=== PATIENT | female | born 1960 ===

== ENCOUNTER 2022-12-29 10:35 | Outpatient (CLI) | payer OTHER ==
[2022-12-29 12:25] LABS: BASOPHILS % (AUTO) 0.6 %; EOSINOPHILS # (AUTO) 0.1 10^3/uL (0.0-0.7); EOSINOPHILS % (AUTO) 2.3 %; HCT - HEMATOCRIT 43.9 % (37.0-47.0); HGB - HEMOGLOBIN 14.3 g/dL (12.0-16.0); LYMPHOCYTES # (AUTO) 1.8 10^3/uL (1.5-3.5); LYMPHOCYTES % (AUTO) 33.3 %; MEAN CORPUSCULAR HEMOGLOBIN 31.3 pg (27.0-31.0); MEAN CORPUSCULAR HGB CONC 32.6 g/dL (32.0-36.0); MEAN CORPUSCULAR VOLUME 96.1 fL (81.0-99.0); MEAN PLATELET VOLUME 10.5 fL (7.9-10.8); MONOCYTES # (AUTO) 0.3 10^3/uL (0.0-1.0); MONOCYTES % (AUTO) 6.3 %; NEUTROPHILS % (AUTO) 57.1 %; PLT - PLATELET COUNT 284 10^3/uL (130-450); RED BLOOD COUNT 4.57 10^6/uL (4.20-5.40); RED CELL DISTRIBUTION WIDTH 12.4 % (12.0-15.0); WHITE BLOOD COUNT 5.3 x10^3/uL (4.8-10.8)
[2022-12-29 12:51] LABS: ALBUMIN 4.1 g/dL (3.2-5.5); ALBUMIN/GLOBULIN RATIO 1.1 (1.0-2.2); BILIRUBIN,TOTAL 0.5 mg/dL (0.2-1.0); CALCIUM 10.2 mg/dL (8.5-10.3); CREATININE 0.9 mg/dL (0.4-1.0); POTASSIUM 3.4 mmol/L (3.5-5.0); TOTAL PROTEIN 7.8 g/dL (6.7-8.2)
== END 2022-12-29 10:36 | disposition home or self-care (01) ==
LOC: LAB.N 10:35
PROVIDERS: ATTEND Nurse Practitioner
DX: I10 Essential (primary) hypertension (principal); E83.52 Hypercalcemia
CPT/HCPCS: 36415; 80053; 83970; 85025

== ENCOUNTER 2022-12-29 14:41 | Outpatient (CLI) | payer OTHER ==
--- NOTE | 2022-12-29 16:39 | Ultrasound Report ---
PROCEDURE: Head or Neck Soft Tissue INDICATIONS: HYPERCALCEMIA TECHNIQUE: Real-time scanning was performed of the thyroid gland, with image documentation. COMPARISON: None FINDINGS: Right: Thyroid lobe measures 4.4 x 1.4 x 1.5 cm, and is homogeneous in echotexture. Left: Thyroid lobe measures 4.2 x 1.2 x 1.3 cm, and is homogenous in echotexture. Isthmus: 2 mm thick. Nodule number: One Location: Right mid/lateral thyroid Size: 0.7 x 0.4 x 0.4 cm. Composition: Solid. Echogenicity: Hypoechoic. Shape: wider than tall. Margins: Smooth (0 points). Echogenic foci: None (0 points). Total points: 2 ACR TI-RADS category: 4 Recommendations: No follow-up necessary based on size. Nodule number: Two Location: Right inferior thyroid Size: 0.5 x 0.3 x 0.5 cm. Composition: Solid. Echogenicity: Hypoechoic. Shape: wider than tall. Margins: Smooth (0 points). Echogenic foci: None (0 points). Total points: 4 ACR TI-RADS category: 4 Recommendations: No follow-up necessary based on size. IMPRESSION: 1. No evidence of parathyroid adenoma by ultrasound. 2. Right thyroid nodules as above. Reviewed by: Kizzy Arnold MD on 12/29/2022 4:37 PM PDT Approved by: Kizzy Arnold MD on 12/29/2022 4:37 PM PDT Station ID: [id number]
== END 2022-12-29 14:42 | disposition home or self-care (01) ==
LOC: DI 14:41
PROVIDERS: ATTEND Nurse Practitioner
DX: E83.52 Hypercalcemia (principal); E04.2 Nontoxic multinodular goiter; I10 Essential (primary) hypertension
CPT/HCPCS: 36415; 80053; 83970; 85025

== ENCOUNTER 2024-01-21 15:42 | Outpatient (CLI) | payer OTHER ==
[2024-01-21 16:32] LABS: THYROID STIMULATING HORMONE 3.29 uIU/mL (0.34-5.60)
== END 2024-01-21 15:43 | disposition home or self-care (01) ==
LOC: LAB 15:42
PROVIDERS: ATTEND Nurse Practitioner
DX: E03.9 Hypothyroidism, unspecified (principal)
CPT/HCPCS: 36415; 84439; 84443

== ENCOUNTER 2024-03-21 14:21 | Outpatient (CLI) | payer OTHER ==
--- NOTE | 2024-03-21 16:36 | Ultrasound Report ---
PROCEDURE: Pelvic w/Transvaginal INDICATIONS: DYSFUNCTIONAL UTERINE BLEED TECHNIQUE: Real-time scanning was performed of the pelvic organs, with image documentation. Additional endovagi nal scanning was necessary due to incomplete visualization of the adnexal and endometrial structures by transabdominal scanning. COMPARISON: None. FINDINGS: Uterus: Uterus is anteverted and normal in size at 6.0 x 2.8 x 3.1 cm. The myometrium is heterogeno us. The endometrium measures 14 mm in combined thickness. Small cysts are present within the endome trium at the level of the fundus and the lower uterine segment. Ovaries: The right ovary measures 1.6 x 1.2 x 1.0 cm, with a calculated ovarian volume of 1 cc. The left ovary measures 1.5 x 2.2 x 2.1 cm, with a calculated ovarian volume of 3.7 cc. The ovaries hav e a normal sonographic appearance. Less than 12 follicles can be seen in each ovary. No adnexal mas ses are seen. No cystic lesions measuring greater than 3 cm. Other: No pathologic free abdominal or pelvic fluid. IMPRESSION: 1.Endometrial thickening up to 14 mm with cyst formation. Gynecological consultation recommended. 2.Otherwise, no sonographic abnormality of the uterus or ovaries. Reviewed by: Ricki Patterson MD on 03/21/2024 4:34 PM PDT Approved by: Ricki Patterson MD on 03/21/2024 4:34 PM PDT Station ID: [id number]
== END 2024-03-21 14:22 | disposition home or self-care (01) ==
LOC: DI 14:21
PROVIDERS: ATTEND Nurse Practitioner
DX: R93.89 Abnormal findings on diagnostic imaging of other specified body structures (principal); N85.8 Other specified noninflammatory disorders of uterus